=== PATIENT | male | born 1945 | race Caucasian/White ===

== ENCOUNTER → 2021-10-05 | Outpatient (CLI) | payer MEDICARE, OTHER ==
[2021-10-05 13:34] LABS: HEMATOCRIT 56 % (40-54); HEMOGLOBIN 17.8 g/dL (13.3-17.7); MEAN CORPUSCULAR HEMOGLOBIN 29 pg (25-34); MEAN CORPUSCULAR HGB CONC 32 g/dL (32-36); MEAN CORPUSCULAR VOLUME 91 fL (80-99); MEAN PLATELET VOLUME 10.4 fL (9.0-12.2); PLATELET COUNT 163 10^3/uL (130-400); WHITE BLOOD COUNT 11.9 10^3/uL (4.3-11.0)
[2021-10-05 13:35] LABS: BASOPHILS % (AUTO) 1 % (0-10); LYMPHOCYTES % (AUTO) 18 % (12-44); MONOCYTES % (AUTO) 7 % (0-12)
[2021-10-05 13:36] LABS: BASOPHILS # (AUTO) 0.1 10^3/uL (0.0-0.1); EOSINOPHILS # (AUTO) 0.2 10^3/uL (0.0-0.3); EOSINOPHILS % (AUTO) 1 % (0-10); LYMPHOCYTES # (AUTO) 2.1 X 10^3 (1.0-4.0); MONOCYTES # (AUTO) 0.8 X 10^3 (0.0-1.0); NEUTROPHILS # (AUTO) 8.5 X 10^3 (1.8-7.8); NEUTROPHILS % (AUTO) 71 % (42-75)
[2021-10-05 14:09] LABS: ALBUMIN 3.1 GM/DL (3.2-4.5); BILIRUBIN,TOTAL 1.7 MG/DL (0.1-1.0); CALCIUM 9.1 MG/DL (8.5-10.1); CREATININE SERUM 1.38 MG/DL (0.60-1.30); POTASSIUM 4.1 MMOL/L (3.6-5.0); TOTAL PROTEIN 7.6 GM/DL (6.4-8.2)
--- NOTE | 2021-10-05 14:46 | Diagnostic Imaging Report ---
Indication: Right-sided abdominal pain. TIME OF EXAM: 1:33 PM No prior studies are available for comparison. There are some calcific densities overlying the renal shadows bilaterally consistent with renal calculi. No definite calculi along the expected course of the ureters are seen. Bowel gas pattern is unremarkable. IMPRESSION: Findings suggestive of bilateral renal calculi. Dictated by: Dictated on workstation # [id number]
== END ==
LOC: LAB FS 13:07
PROVIDERS: ATTEND Emergency Medicine
DX: N17.9 Acute kidney failure, unspecified (principal); E87.5 Hyperkalemia
CPT/HCPCS: 36415; 74018; 80053; 85025